=== PATIENT | male | born 1985 | race Caucasian/White ===

== ENCOUNTER 2017-04-03 13:35 | Observation (INO) | payer OTHER ==
[2017-04-03 13:39] VITALS: BMI 29.8
--- NOTE | 2017-04-03 14:51 | PDOC ---
History of Present Illness - General Chief Complaint: Pain Stated Complaint: BACK PAIN Time Seen by Provider: 04/03/17 13:59 History Source: Patient Exam Limitations: Language Barrier - History of Present Illness Initial Comments: 04/03/17 14:52 Patient is a 31 y.o. male with no significant PMH who presents today c/o of a kidney stone. Patient states he was evaluated on Tuesday (04/01) in his PCP's office (Dr. Mikal Galvez) who stated that he was told to come to the ED by Dr. Mikal Galvez today. Patient has a prescription for Oxycodone (10 mg QD) and and Levofloxacin though he notes he has not taken the Oxycodone. Past History - Past Medical History Allergies/Adverse Reactions: Allergies Allergy/AdvReac Type Severity Reaction Status Date / Time No Known Allergies Allergy Verified 04/03/17 13:39 Home Medications: Ambulatory Orders Candesartan/Hydrochlorothiazid [Candesartan-Hctz 32-12.5 mg Tb] 1 each PO DAILY 04/03/17 Levofloxacin [Levaquin] 500 mg PO DAILY 04/03/17 HTN: Yes Kidney Stones: Yes - Psycho/Social/Smoking Cessation Hx Anxiety: No Suicidal Ideation: No Smoking History: Never smoked Hx Alcohol Use: No Drug/Substance Use Hx: No Substance Use Type: None Review of Systems - Review of Systems Constitutional: No: Chills, Diaphoresis, Fever, Night Sweats HEENTM: No: Blurred Vision, Double Vision, Tinnitus, Throat Swelling Respiratory: No: Cough, Orthopnea, Shortness of Breath, Wheezing Cardiac (ROS): No: Chest Pain, Lightheadedness, Palpitations ABD/GI: No: Constipated, Diarrhea : No: Burning, Dysuria Musculoskeletal: Yes: Back Pain Integumentary: No: Dryness, Erythema, Flushing, Lesions Neurological: No: Headache, Numbness, Tingling, Tremors Psychiatric: No: Anxiety, Depression All Other Systems: Reviewed and Negative *Physical Exam - Vital Signs Last Vital Signs Temp Pulse Resp BP Pulse Ox 98.1 F 115 H 20 120/73 97 04/03/17 13:36 04/03/17 13:36 04/03/17 13:36 04/03/17 13:36 04/03/17 13:36 - Physical Exam General Appearance: Yes: Nourished, Appropriately Dressed HEENT: positive: EOMI, BERTHA Neck: positive: Trachea midline, Supple Respiratory/Chest: positive: Lungs Clear, Normal Breath Sounds Cardiovascular: positive: Regular Rhythm, S1, S2, Tachycardia Gastrointestinal/Abdominal: positive: Normal Bowel Sounds, Soft Musculoskeletal: positive: Normal Inspection, CVA Tenderness (R), CVA Tenderness (L) Extremity: positive: Normal Capillary Refill, Normal Inspection Integumentary: positive: Normal Color, Dry, Warm Neurologic: positive: meat grader II-XII NML intact, Fully Oriented, Alert ED Treatment Course - LABORATORY CBC & Chemistry Diagram: 04/03/17 15:40 04/03/17 15:40 Medical Decision Making - Medical Decision Making 04/03/17 15:13 Patient is a 31 y.o. male who presents with previously diagnosed nephrolithiasis. Patient's urologist, Dr. Mikal Galvez, was contacted and Dr. Galvez noted that he wished for the patient to be admitted for intervention tomorrow and that the patient should be NPO at midnight. Patient was admitted to hospitalist service under Dr. Pope *DC/Admit/Observation/Transfer Diagnosis at time of Disposition: Calculus of kidney - Discharge Dispostion Condition at time of disposition: Good Admit: Yes - Referrals Referrals: Mikal Galvez MD [Primary Care Provider] - - Attestations Physician Attestion: 04/03/17 17:45 I, Dr. Rachelle Beck, attest that this document has been prepared under my direction and personally reviewed by me in its entirety. I further attest, that it accurately reflects all work, treatment, procedures and medical decision -making performed by me.
--- NOTE | 2017-04-03 15:00 | PDOC ---
History of Present Illness - General Chief Complaint: Pain Stated Complaint: BACK PAIN Time Seen by Provider: 04/03/17 13:59 Past History - Past Medical History Allergies/Adverse Reactions: Allergies Allergy/AdvReac Type Severity Reaction Status Date / Time No Known Allergies Allergy Verified 04/03/17 13:39 Home Medications: Ambulatory Orders Candesartan/Hydrochlorothiazid [Candesartan-Hctz 32-12.5 mg Tb] 1 each PO DAILY 04/03/17 Levofloxacin [Levaquin] 500 mg PO DAILY 04/03/17 HTN: Yes Kidney Stones: Yes - Psycho/Social/Smoking Cessation Hx Anxiety: No Suicidal Ideation: No Smoking History: Never smoked Hx Alcohol Use: No Drug/Substance Use Hx: No Substance Use Type: None *Physical Exam - Vital Signs Last Vital Signs Temp Pulse Resp BP Pulse Ox 98.1 F 115 H 20 120/73 97 04/03/17 13:36 04/03/17 13:36 04/03/17 13:36 04/03/17 13:36 04/03/17 13:36 *DC/Admit/Observation/Transfer - Attestations Physician Attestion: 04/03/17 15:00 I, Dr. Richard Hanks, attest that this document has been prepared under my direction and personally reviewed by me in its entirety. I further attest, that it accurately reflects all work, treatment, procedures and medical decision -making performed by me.
--- NOTE | 2017-04-03 15:06 | PDOC ---
Attending Attestation - Resident Resident Name: Rachelle Beck - ED Attending Attestation I have performed the following: I have examined & evaluated the patient, The case was reviewed & discussed with the resident, I agree w/resident's findings & plan, Exceptions are as noted - HPI HPI: 04/03/17 18:08 31 yo male with large kidney stone presents with instructions from his urologist to be admitted for lithotripsy - Physicial Exam PE: 04/03/17 18:11 No acute distress..... comfortable. benign abdomen - Medical Decision Making 04/03/17 18:12 Admit to hospitalist service with consult to urology
[2017-04-03 15:49] LABS: BASOPHIL 0.3 % (0-2.0); EOSINOPHIL 0.5 % (0-4.5); MCH 30.7 pg (25.7-33.7); MCHC 33.3 g/dl (32.0-35.9); MEAN CELL VOLUME 92.3 fl (80-96); MEAN PLT VOLUME 9.6 fl (7.5-11.1); NEUTROPHILS 68.2 % (42.8-82.8); PLATELET COUNT 216 K/MM3 (134-434); RDW 12.6 % (11.9-15.9); WHITE BLOOD COUNT 7.1 K/mm3 (4.0-10.0)
[2017-04-03 15:53] LABS: URINE APPEARANCE CLEAR; URINE BILIRUBIN NEGATIVE (NEGATIVE); URINE BLOOD NEGATIVE (NEGATIVE); URINE COLOR LTYELLOW; URINE GLUCOSE (UA) NEGATIVE (NEGATIVE); URINE KETONE NEGATIVE (NEGATIVE); URINE LEUK ESTERASE NEGATIVE (NEGATIVE); URINE NITRITE NEGATIVE (NEGATIVE); URINE PROTEIN NEGATIVE (NEGATIVE); URINE UROBILINOGEN NEGATIVE mg/dL (0.2-1.0)
[2017-04-03 16:19] LABS: INR 1.11 (0.82-1.09); PROTHROMBIN TIME (PATIENT) 12.2 SEC (9.98-11.88)
[2017-04-03 16:24] LABS: ANION GAP 6 (8-16); CALCIUM 9.2 mg/dL (8.5-10.1); CO2 32 mmol/L (21-32); CREATININE 1.4 mg/dL (0.7-1.3); GLUCOSE,RANDOM 74 mg/dL (74-106)
[2017-04-03] MEDS ORDERED: LEVOFLOXACIN 500 MG IVPB 100 ML IVPB ONE (18:16)
--- NOTE | 2017-04-03 18:20 | HP ---
CHIEF COMPLAINT: Needs lithotripsy PCP: Dr. Wei Montague HISTORY OF PRESENT ILLNESS: This is a 31 year old male with PMHx of HTN who presented to the ED per Dr. Priti Montague's request for lithotripsy tomorrow. The patient reports he was seen in Dr. Wei Montague's office on Tuesday for kidney stone and is scheduled tomorrow for planned lithotripsy. The patient denies any pain at this time. ER course was notable for: (1) Cr 1.4 (2) EKG NSR (3) UA negative (4) Chest X-ray pending Recent Travel: denies PAST MEDICAL HISTORY: as above PAST SURGICAL HISTORY: denies Social History: Smoking: denies Alcohol: denies Drugs: denies Family History: Allergies No Known Allergies Allergy (Verified 04/03/17 13:39) HOME MEDICATIONS: Home Medications Medication Instructions Recorded Candesartan/Hydrochlorothiazid 1 each PO DAILY 04/03/17 [Candesartan-Hctz 16-12.5 mg Tb] Levofloxacin [Levaquin] 500 mg PO DAILY 04/03/17 REVIEW OF SYSTEMS CONSTITUTIONAL: Absent: fever, chills, diaphoresis, generalized weakness, malaise, loss of appetite, weight change HEENT: Absent: rhinorrhea, nasal congestion, throat pain, throat swelling, difficulty swallowing, mouth swelling, ear pain, eye pain, visual changes CARDIOVASCULAR: Absent: chest pain, syncope, palpitations, irregular heart rate , lightheadedness, peripheral edema RESPIRATORY: Absent: cough, shortness of breath, dyspnea with exertion, orthopnea, wheezing, stridor, hemoptysis GASTROINTESTINAL:Absent: abdominal pain, abdominal distension, nausea, vomiting , diarrhea, constipation, melena, hematochezia GENITOURINARY: Mild flank pain. Absent: dysuria, frequency, urgency, hesitancy, hematuria, genital pain MUSCULOSKELETAL: Mild back pain. Absent: myalgia, arthralgia, joint swelling, neck pain SKIN: Absent: rash, itching, pallor HEMATOLOGIC/IMMUNOLOGIC: Absent: easy bleeding, easy bruising, lymphadenopathy, frequent infections ENDOCRINE:Absent: unexplained weight gain, unexplained weight loss, heat intolerance, cold intolerance NEUROLOGIC: Absent: headache, focal weakness or paresthesias, dizziness, unsteady gait, seizure, mental status changes, bladder or bowel incontinence PSYCHIATRIC: Absent: anxiety, depression, suicidal or homicidal ideation, hallucinations. PHYSICAL EXAMINATION Vital Signs - 24 hr 04/03/17 13:36 Temperature 98.1 F Pulse Rate 115 H Respiratory 20 Rate Blood Pressure 120/73 O2 Sat by Pulse 97 Oximetry (%) GENERAL: Awake, alert, and fully oriented, in no acute distress. HEAD: Normal with no signs of trauma. EYES: Pupils equal, round and reactive to light, extraocular movements intact, sclera anicteric, conjunctiva clear. No lid lag. EARS, NOSE, THROAT: Ears normal, nares patent. Moist mucous membranes. NECK: Normal range of motion, supple without lymphadenopathy, or masses. LUNGS: Breath sounds equal, clear to auscultation bilaterally. No wheezes, and no crackles. No accessory muscle use. HEART: Regular rate and rhythm, normal S1 and S2 without murmur, rub or gallop. ABDOMEN: Soft, nontender, not distended, normoactive bowel sounds, no guarding, no rebound, no masses. No hepatomegaly or splenomegaly. MUSCULOSKELETAL: Normal range of motion at all joints. No bony deformities or tenderness. No CVA tenderness. UPPER EXTREMITIES: 2+ pulses, warm, well-perfused. No cyanosis. No clubbing. No peripheral edema. LOWER EXTREMITIES: 2+ pulses, warm, well-perfused. No calf tenderness. No peripheral edema. NEUROLOGICAL: Cranial nerves II-XII intact. Normal speech. Normal gait. PSYCHIATRIC: Cooperative. Good eye contact. Appropriate mood and affect. SKIN: Warm, dry, normal turgor, no rashes or lesions noted, normal capillary refill. CBCD WBC 7.1 K/mm3 (4.0-10.0) 04/03/17 15:40 RBC 5.27 M/mm3 (4.00-5.60) 04/03/17 15:40 Hgb 16.2 GM/dL (11.7-16.9) 04/03/17 15:40 Hct 48.7 % (35.4-49) 04/03/17 15:40 MCV 92.3 fl (80-96) 04/03/17 15:40 MCHC 33.3 g/dl (32.0-35.9) 04/03/17 15:40 RDW 12.6 % (11.9-15.9) 04/03/17 15:40 Plt Count 216 K/MM3 (134-434) 04/03/17 15:40 MPV 9.6 fl (7.5-11.1) 04/03/17 15:40 CMP Sodium 140 mmol/L (136-145) 04/03/17 15:40 Potassium 4.1 mmol/L (3.5-5.1) 04/03/17 15:40 Chloride 102 mmol/L (98-107) 04/03/17 15:40 Carbon Dioxide 32 mmol/L (21-32) 04/03/17 15:40 Anion Gap 6 (8-16) L 04/03/17 15:40 BUN 25 mg/dL (7-18) H 04/03/17 15:40 Creatinine 1.4 mg/dL (0.7-1.3) H 04/03/17 15:40 Random Glucose 74 mg/dL (74-106) 04/03/17 15:40 Calcium 9.2 mg/dL (8.5-10.1) 04/03/17 15:40 Assessment: This is a 31 year old male with PMHx of HTN who presented to the ED per Dr. Galvez's request for lithotripsy tomorrow. Plan: 1) : Lithotripsy for kidney stones tomorrow - Unknown which kidney or how large as we do not have imaging in our computer system - NPO after midnight. IVF once NPO - Continue empiric levaquin (patient took his own po dose of 500mg in the ED tonight) - Pain management - F/u urology consult KAY? - Baseline Cr unknown - Likely 2/2 large kidney stone - Continue to monitor 2) Cardiology: HTN - Continue home medication - BP controlled - Patient denies any chest pain at this time, EKG without signs of ACS. There are no complete contraindications to proceeding with planned lithotripsy tomorrow. The patient is low risk for a low risk procedure 3) F/E/N: - Low sodium diet - NPO after midnight - Monitor electrolytes 4) Prophylaxis: - OOB ambulating - SCDs bilaterally 5) Dispo: - Once lithotripsy completed CODE STATUS: FULL CODE Visit type - Emergency Visit Emergency Visit: Yes Care time: The patient presented to the Emergency Department on the above date and was hospitalized for further evaluation of their emergent condition. - New Patient This patient is new to me today: Yes Date on this admission: 04/03/17 - Critical Care Critical Care patient: No
[2017-04-03] MEDS: SODIUM CHLORIDE 1,000 ML IV SCH (23:44)
[2017-04-04 07:00] LABS: MCH 31.4 pg (25.7-33.7); MCHC 33.7 g/dl (32.0-35.9); MEAN PLT VOLUME 8.7 fl (7.5-11.1); PLATELET COUNT 182 K/MM3 (134-434); RDW 12.8 % (11.9-15.9); WHITE BLOOD COUNT 6.2 K/mm3 (4.0-10.0)
[2017-04-04 07:24] LABS: ANION GAP 8 (8-16); CALCIUM 8.8 mg/dL (8.5-10.1); CO2 30 mmol/L (21-32); CREATININE 1.3 mg/dL (0.7-1.3); GLUCOSE,RANDOM 89 mg/dL (74-106)
--- NOTE | 2017-04-04 09:50 | EKG ---
Test Reason : Blood Pressure : / mmHG Vent. Rate : 086 BPM Atrial Rate : 086 BPM P-R Int : 182 ms QRS Dur : 090 ms QT Int : 338 ms P-R-T Axes : 049 025 035 degrees QTc Int : 404 ms NORMAL SINUS RHYTHM NORMAL ECG NO PREVIOUS ECGS AVAILABLE Confirmed by BRANDY COUCH MD ([id number]) on 04/04/2017 9:50:31 AM Referred By: Confirmed By:BRANDY COUCH MD
[2017-04-04] MEDS ORDERED: VALSARTAN 160 MG TABLET (UD) PO SCH (10:00)
[2017-04-04] MEDS ORDERED: HYDROCHLOROTHIAZIDE 12.5 MG CAPSULE (FP) PO SCH ×2 (10:00)
[2017-04-04] MEDS: SODIUM CHLORIDE 1,000 ML IV SCH (10:04)
--- NOTE | 2017-04-04 11:27 | PN ---
Progress Note (short form) - Note Progress Note: Subjective: The patient was seen and examined at the bedside, he has complaints of left chest warmth. Denies any chest pain, shortness of breath, chest heaviness, radiating pain, numbness of tingling in extremities. No peripheral edema Current Medications Generic Name Dose Route Start Last Admin Trade Name Daniel PRN Reason Stop Dose Admin Hydrochlorothiazide 12.5 mg 04/04/17 10:00 04/04/17 10:03 Hctz - PO 12.5 mg DAILY ELIAS Administration Sodium Chloride 1,000 mls @ 100 mls/hr 04/04/17 00:00 04/04/17 10:04 Normal Saline - IV 100 mls/hr ASDIR ELIAS Administration Valsartan 160 mg 04/04/17 10:00 04/04/17 10:03 Diovan - PO 160 mg DAILY ELIAS Administration Objective: Vital Signs Period Temp Pulse Resp BP Sys/Escalante Pulse Ox Last 24 Hr 98.1 F-98.7 F 75-115 16-20 100-128/60-75 96-100 Physical Exam: General: NAD, lithuanian speaking Lungs: CTA bilaterally Heart: RRR, S1S2 Abd: Soft, non-tender, non-distended. b/l mild CVA tenderness Ext: Warm, well-perfused. 2+ DP/PT bilaterally Neuro: CN 2-12 intact CBCD WBC 6.2 K/mm3 (4.0-10.0) 04/04/17 05:55 RBC 4.99 M/mm3 (4.00-5.60) 04/04/17 05:55 Hgb 15.7 GM/dL (11.7-16.9) 04/04/17 05:55 Hct 46.4 % (35.4-49) 04/04/17 05:55 MCV 93.0 fl (80-96) 04/04/17 05:55 MCHC 33.7 g/dl (32.0-35.9) 04/04/17 05:55 RDW 12.8 % (11.9-15.9) 04/04/17 05:55 Plt Count 182 K/MM3 (134-434) 04/04/17 05:55 MPV 8.7 fl (7.5-11.1) 04/04/17 05:55 CMP Sodium 140 mmol/L (136-145) 04/04/17 05:55 Potassium 3.9 mmol/L (3.5-5.1) 04/04/17 05:55 Chloride 102 mmol/L (98-107) 04/04/17 05:55 Carbon Dioxide 30 mmol/L (21-32) 04/04/17 05:55 Anion Gap 8 (8-16) 04/04/17 05:55 BUN 23 mg/dL (7-18) H 04/04/17 05:55 Creatinine 1.3 mg/dL (0.7-1.3) 04/04/17 05:55 Random Glucose 89 mg/dL (74-106) D 04/04/17 05:55 Calcium 8.8 mg/dL (8.5-10.1) 04/04/17 05:55 Assessment: This is a 31 year old male with PMHx of HTN who presented to the ED per Dr. Galvez's request for lithotripsy. Plan: 1) : Lithotripsy for kidney stones tomorrow - Unknown which kidney or how large as we do not have imaging in our computer system - NPO - Continue empiric levaquin (patient took his own po dose of 500mg in the ED last night) - Pain management - F/u urology consult KAY? - Baseline Cr unknown - Likely 2/2 large kidney stone - Continue to monitor 2) Cardiology: HTN - Continue home medication - BP controlled Chest warmth - Patient has complaints of left chest warmth. BP 120s/80s. Denies any pain, heaviness, shortness of breath - F/u EKG - F/u cardiac enzymes - Cannot proceed with planned procedure until medical clearance 3) F/E/N: - NPO - Monitor electrolytes 4) Prophylaxis: - OOB ambulating - SCDs bilaterally 5) Dispo: - Once lithotripsy completed CODE STATUS: FULL CODE Visit type - Emergency Visit Emergency Visit: Yes ED Registration Date: 04/03/17 Care time: The patient presented to the Emergency Department on the above date and was hospitalized for further evaluation of their emergent condition. - New Patient This patient is new to me today: No - Critical Care Critical Care patient: No
--- NOTE | 2017-04-04 12:13 | EKG ---
Test Reason : Blood Pressure : / mmHG Vent. Rate : 086 BPM Atrial Rate : 086 BPM P-R Int : 174 ms QRS Dur : 088 ms QT Int : 340 ms P-R-T Axes : 042 020 024 degrees QTc Int : 406 ms NORMAL SINUS RHYTHM NORMAL ECG WHEN COMPARED WITH ECG OF 03-APR-2017 17:28, NO SIGNIFICANT CHANGE WAS FOUND Confirmed by JENN MATHEWS MD ([id number]) on 04/04/2017 12:13:04 PM Referred By: ALVARO ATKINS Confirmed By:JENN MATHEWS MD
[2017-04-04 12:45] LABS: CPK 63 IU/L (39-308); TROPONIN I < 0.02 ng/ml (0.00-0.05)
[2017-04-04] MEDS ORDERED: PROMETHAZINE HCL 25 MG/1 ML VIAL IVPUSH PRN (14:06)
[2017-04-04] MEDS ORDERED: ONDANSETRON 4 MG/2 ML VIAL IVPUSH PRN (14:06)
[2017-04-04] MEDS ORDERED: MIDAZOLAM HCL 2 MG/2 ML SINGLE DOSE VIAL ONE (14:10)
[2017-04-04] MEDS ORDERED: LIDOCAINE HCL/PF 2% SDV 5ML VIAL ONE (14:11)
[2017-04-04] MEDS ORDERED: PROPOFOL 20 ML ONE (14:12)
[2017-04-04] MEDS ORDERED: LACTATED RINGERS SOLUTION 1,000 ML IV SCH (14:15)
--- NOTE | 2017-04-04 14:33 | CONSULT ---
Consult - text type - Consultation Consultation Note: CC: left renal colic with hydroureteronephrosis secondary to ureteral stone hpi: patient with history of high grade left hydroureteronephrosis secondary to left distal ureteral stone. Patient with intermittent nausea, vomiting, and chills. Patient has not passed a stone. PE +left CVAT imp left hydro secondary to renal/ureteral stones plan cysto/left retro/possible stone basketing. Patient taken emergently to the OR for resolution of high grade right ureteral obstruction discussed x 25 min
[2017-04-04] MEDS ORDERED: LIDOCAINE HCL 2% JELLY 10 ML CARTRIDGE ONE (14:40)
[2017-04-04] MEDS ORDERED: LEVOFLOXACIN 500 MG IVPB 100 ML IVPB ONE (14:55)
[2017-04-04] MEDS ORDERED: LEVOFLOXACIN 500 MG PREMIX BAG IVPB ONE (15:00)
--- NOTE | 2017-04-04 15:44 | OP ---
Operative Note - Note: Operative Date: 04/04/17 Pre-Operative Diagnosis: left renal colic with hydronephrosis secondary to stone Operation: cystoscopy and left retrograde pyelogram Findings: passed stone/no obstruction noted Post-Operative Diagnosis: Other (passed stone) Surgeon: Mikal Galvez Anesthesia: General
[2017-04-04 16:18] VITALS: BP 127/76; PULSE 85; TEMP 98.1
--- NOTE | 2017-04-04 18:48 | DS ---
Physical Exam: SUBJECTIVE: Patient seen and examined OBJECTIVE: Vital Signs Period Temp Pulse Resp BP Sys/Escalante Pulse Ox Last 24 Hr 98.1 F-98.8 F 75-96 16-20 100-128/60-80 98-100 PHYSICAL EXAM GENERAL: The patient is awake, alert, and fully oriented, in no acute distress. HEAD: Normal with no signs of trauma. EYES: PERRL, extraocular movements intact, sclera anicteric, conjunctiva clear. ENT: Ears normal, nares patent, oropharynx clear without exudates, moist mucous membranes. NECK: Trachea midline, full range of motion, supple. LUNGS: Breath sounds equal, clear to auscultation bilaterally, no wheezes, no crackles, no accessory muscle use. HEART: Regular rate and rhythm, S1, S2 without murmur, rub or gallop. ABDOMEN: Soft, nontender, nondistended, normoactive bowel sounds, no guarding, no rebound, no hepatosplenomegaly, no masses. EXTREMITIES: 2+ pulses, warm, well-perfused, no edema. NEUROLOGICAL: Cranial nerves II through XII grossly intact. Normal speech, gait not observed. PSYCH: Normal mood, normal affect. SKIN: Warm, dry, normal turgor, no rashes or lesions noted. LABS Laboratory Results - last 24 hr 04/04/17 04/04/17 04/04/17 05:55 05:55 12:10 WBC 6.2 RBC 4.99 Hgb 15.7 Hct 46.4 MCV 93.0 MCH 31.4 MCHC 33.7 RDW 12.8 Plt Count 182 MPV 8.7 Sodium 140 Potassium 3.9 Chloride 102 Carbon Dioxide 30 Anion Gap 8 BUN 23 H Creatinine 1.3 Random Glucose 89 D Calcium 8.8 Creatine Kinase 63 Troponin I < 0.02 HOSPITAL COURSE: Date of Admission:04/03/17 Date of Discharge: 04/04/17 Discharge Summary Reason For Visit: BACK PAIN Current Active Problems Kidney calculi (Acute) Hospital Course: Discussed with Dr. Galvez, patient passed stone prior to procedure. Can discharge from his perspective, no need for abx Condition: Improved - Instructions Diet, Activity, Other Instructions: Please return to the ED with new, persistent, or worsening symptoms. Please follow-up with providers as indicated. You MUST stop taking your Levaquin as you do not need it anymore. Referrals: Mikal Galvez MD [Primary Care Provider] - (Please follow-up with your urologist within 1-2 weeks. ) Marko Crisostomo MD [Staff Physician] - 1 Week Disposition: HOME - Home Medications Comprehensive Discharge Medication List: Ambulatory Orders Candesartan/Hydrochlorothiazid [Candesartan-Hctz 16-12.5 mg Tb] 1 each PO DAILY 04/03/17
--- NOTE | 2017-04-05 09:05 | OP ---
DATE OF OPERATION: 04/04/2017 PREOPERATIVE DIAGNOSIS: Renal calculi and left hydronephrosis. POSTOPERATIVE DIAGNOSIS: Past left ureteral stone. PROCEDURE: Cystoscopy, left retrograde pyelogram. ATTENDING: Mikal Montague MD ANESTHESIA: General. DESCRIPTION OF PROCEDURE: The patient was brought in the operating room and placed in the supine position on the operating room table. The patient had a sonogram on Tuesday with high-grade hydroureteronephrosis. The patient had a previous CAT scan showing a distal ureteral stone. The patient continued with symptoms and presented to the emergency room on Tuesday. The patient was brought into the operating room on Tuesday for evaluation. A cystoscopy and left retrograde pyelogram were planned. This was done emergently due to the patient's symptoms. Anesthesia was administered. The patient was then placed in the dorsal lithotomy position and prepped and draped in the usual sterile manner. Cystoscopy was performed, and there was no evidence of stone within the bladder. neoplasm is noted either. The left ureteral orifice appears normal. A retrograde pyelogram is performed, and no evidence of obstruction is noted. There is adequate drainage over the left kidney. The patient tolerated the procedure very well. No complications were noted. Disposition of patient to recovery room. Cheli [id number]
[2017-04-05] MEDS ORDERED: HYDROCHLOROTHIAZIDE 12.5 MG CAPSULE (FP) PO SCH (10:00)
[2017-04-05] MEDS ORDERED: VALSARTAN 160 MG TABLET (UD) PO SCH (10:00)
--- NOTE | 2017-04-05 12:42 | EKG ---
Test Reason : Blood Pressure : / mmHG Vent. Rate : 082 BPM Atrial Rate : 082 BPM P-R Int : 178 ms QRS Dur : 074 ms QT Int : 346 ms P-R-T Axes : 047 008 029 degrees QTc Int : 404 ms POOR DATA QUALITY, INTERPRETATION MAY BE ADVERSELY AFFECTED NORMAL SINUS RHYTHM INCOMPLETE RBBB INCOMPLETE TRACING. ARTIFACTS V3 AND V6 IS MISSING REPEAT TRACING Confirmed by BRENDA IVERSON MD ([id number]) on 04/05/2017 12:42:18 PM Referred By: Confirmed By:BRENDA IVERSON MD
== END 2017-04-04 20:00 | disposition home or self-care (01) ==
LOC: JER 13:35 → JERBED 17:45 → J6S 22:51
PROVIDERS: ADMIT Internal Medicine; ATTEND Registered Nurse
PROC: BT1FZZZ Fluoroscopy of Left Kidney, Ureter and Bladder (ICD-10-PCS; principal; 2017-04-03)
PROC: 3E033GC Introduction of Other Therapeutic Substance into Peripheral Vein, Percutaneous Approach (ICD-10-PCS; 2017-04-03)
PROC: 3E0337Z Introduction of Electrolytic and Water Balance Substance into Peripheral Vein, Percutaneous Approach (ICD-10-PCS; 2017-04-03)
DX: N20.0 Calculus of kidney (principal); I10 Essential (primary) hypertension; N17.9 Acute kidney failure, unspecified; N13.39 Other hydronephrosis
CPT/HCPCS: 36415; 71020-TC; 76000-TC; 80048; 81003; 84484; 85025; 85027; 85610; 85730; 86850; 86900; 86901; 93005; 93010; 94760; 99285-25; G0378